=== PATIENT | female | born 1960 | race Caucasian/White ===

== ENCOUNTER 2022-03-08 13:50 | Emergency (ER) | payer BC, MEDICARE ==
[2022-03-08] MEDS ORDERED: Lidocaine 1% PF 5 ML VIAL ONE (14:26)
[2022-03-08] MEDS ORDERED: Bacitracin 1 PK ONE (14:43)
== END 2022-03-08 14:49 | disposition home or self-care (01) ==
LOC: BURERS 13:50
DX: T81.41XA Infection following a procedure, superficial incisional surgical site, initial encounter (principal); L08.9 Local infection of the skin and subcutaneous tissue, unspecified; E11.40 Type 2 diabetes mellitus with diabetic neuropathy, unspecified; I10 Essential (primary) hypertension
CPT/HCPCS: 10060; 87070; 87077; 87186; 87205

== ENCOUNTER 2022-06-26 19:55 | Emergency (ER) | payer BC, MEDICARE, OTHER ==
[2022-06-26] MEDS ORDERED: Ibuprofen 800 MG TAB ONE (20:34)
== END 2022-06-26 21:29 | disposition home or self-care (01) ==
LOC: BURERS 19:55
DX: M54.2 Cervicalgia (principal); I10 Essential (primary) hypertension; E11.40 Type 2 diabetes mellitus with diabetic neuropathy, unspecified; Z79.84 Long term (current) use of oral hypoglycemic drugs; Z79.899 Other long term (current) drug therapy
CPT/HCPCS: 93005